=== PATIENT | male | born 1950 | race Hispanic/Latino ===

== ENCOUNTER 2017-02-23 19:58 | Inpatient (IN) | payer BC ==
[2017-02-23] MEDS ORDERED: ACETAMINOPHEN 500 MG TAB PO ONE (20:31)
[2017-02-23] MEDS ORDERED: SODIUM CHLORIDE 0.9% 1000ML 1,000 ML IVS ONE (20:31)
[2017-02-23] MEDS ORDERED: PIPERACILLIN/TAZOBACTAM 3.375 GM in SODIUM CHLORIDE 0.9% 100ML 100 ML IVPB ONE (20:45)
[2017-02-23] MEDS ORDERED: HYDROmorphone HCL INJ 2 MG/ML VIAL IV ONE (20:47)
[2017-02-23] MEDS ORDERED: PIPERACILLIN/TAZOBACTAM 3.375 GM VIAL IVPB ONE (21:12)
[2017-02-23] MEDS ORDERED: SODIUM CHLORIDE 0.9% 100ML 100 ML IVPB ONE (21:13)
--- NOTE | 2017-02-23 21:49 | CT ---
EXAM DESCRIPTION: Abdomen/Pelvis w/Contrast CLINICAL HISTORY: fever, generalized abd pain, suspect diverticulitis COMPARISON: None Available TECHNIQUE: Contiguous axial images of the abdomen and pelvis were obtained after the administration of intravenous contrast followed by reconstruction images.This exam was performed according to our departmental dose-optimization program, which includes automated exposure control, adjustment of the mA and/or kV according to patient size and/or use of iterative reconstruction technique. FINDINGS: There is diffuse mucosal thickening of the ascending and proximal transverse colon with mild stranding of the adjacent fat which could be secondary to an infectious or inflammatory process. There is a small amount of free fluid in the lower abdomen. Linear opacities within the lungs may represent scar versus subsegmental atelectasis. 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 There is atherosclerosis. The liver, spleen, pancreas and kidneys are within normal limits. There is no hydronephrosis or renal stones. The gallbladder is unremarkable by CT criteria. Adrenal glands are within normal limits. Aorta is of normal caliber and tapering. There is no bowel obstruction. The appendix is within normal limits. There is no pericecal inflammation. IMPRESSION: Diffuse mucosal thickening of the ascending colon and proximal transverse colon could be secondary to an infectious or inflammatory colitis. Other etiologies are not excluded. Recommend follow-up. Electronically signed by: Sriram Hart MD 02/23/2017 9:49 PM CDT
--- NOTE | 2017-02-23 22:25 | ED.PDOC ---
History of Present Illness - General Chief Complaint: Abdominal Pain Stated Complaint: fever and abdominal pain Time Seen by Provider: 02/23/17 20:28 Information Source: patient, RN notes reviewed, Vital Signs reviewed, family Additional Information: Pt with several days of fever and abdominal pain/cramps. No prior similar symptoms. No history of colonoscopy. No history of abdominal surgeries in the past. Pt with significant PMH of DM, Chronic ITP, HTN, HLD, BPH. - History of Present Illness Abdominal Pain Onset Location: other - lower abdomen and right sided Pain Radiation: no radiation Quality: moderate, severe, cramping, intermittent, sharpness Timing/Duration: days - x 2 to 3 Improving Factors: medication - Tylenol helped with fever yesterday. Worsening Factors: nothing Associated Symptoms: fever/chills, weakness Review of Systems - Review of Systems Constitutional: States: chills, fever, weakness EENTM: States: no symptoms reported Respiratory: States: no symptoms reported Cardiology: States: no symptoms reported Gastrointestinal/Abdominal: States: see HPI, abdominal pain Genitourinary: States: no symptoms reported Musculoskeletal: States: no symptoms reported Skin: States: no symptoms reported Neurological: States: no symptoms reported Endocrine: States: no symptoms reported Hematologic/Lymphatic: States: no symptoms reported Past Medical History (General) - Patient Medical History Hx Diabetes: Yes Hx MRSA: No Hx Other PMH: Yes - Chronic Idiopathic Thrombocytopenia - Vaccination History Hx Tetanus, Diphtheria Vaccination: No Hx Influenza Vaccination: No Hx Pneumococcal Vaccination: No Immunizations Up to Date: Yes - Social History Hx Tobacco Use: No Hx Alcohol Use: No Hx Substance Use: No Hx Substance Use Treatment: No Hx Depression: No Feels Threatened In Home Enviroment: No Feels Threatened In a Relationship: No Hx Physical Abuse: No Hx Emotional Abuse: No Hx Suspected Abuse: No Family Medical History - Family History Mother Family History: Unknown Living Status: Physical Exam - Physical Exam General Appearance: Ill Appearing, Well Developed, Well Groomed, Well Nourished Eyes, Ears, Nose, Throat Exam: normal ENT inspection, pharynx normal Neck: non-tender, full range of motion, supple, normal inspection Respiratory: no respiratory distress, no accessory muscle use Cardiovascular/Chest: normal peripheral pulses, regular rate, rhythm, no murmur Gastrointestinal/Abdominal: soft, tenderness - lower abdomen and right sided Extremity: normal range of motion, non-tender, normal inspection Neurologic: cutter and presser II-XII nml as tested, no motor/sensory deficits, alert, normal mood/affect, oriented x 3 Skin Exam: normal color Lymphatic: no adenopathy Progress - Progress Progress: 02/23/17 22:25 Diffuse abdominal pain/cramping associated with fever - DDx was Diverticulitis vs. Intestinal Abscess vs. Colitis vs. Appendicitis. Left shift of WBCs (no Leukocytosis) in the setting of chronic ITP. Pt started on Zosyn empirically and Tylenol. CT Scan with the following IMPRESSION: Diffuse mucosal thickening of the ascending colon and proximal transverse colon could be secondary to an infectious or inflammatory colitis. Other etiologies are not excluded. Recommend follow-up. Decision made to admit patient to Hospitalist service for ongoing IV Antibiotics , observation and advance diet as tolerated. Hospitalist Mari accepted admission at about 2225. - Results/Orders Results/Orders: 02/23/17 20:30 URINALYSIS Stat 02/23/17 20:43 Hold Metformin x 48Hrs [id number] 02/23/17 20:47 BLOOD CULTURE Stat Laboratory Results - last 24 hr 02/23/17 02/23/17 20:30 20:30 WBC 6.6 RBC 4.81 Hgb 13.8 L Hct 40.2 L MCV 83.6 MCH 28.6 MCHC 34.4 RDW 14.5 Plt Count 59 L MPV 12.0 H Absolute Neuts (auto) 5.50 Absolute Lymphs (auto) 0.50 L Absolute Monos (auto) 0.50 Absolute Eos (auto) 0.10 Absolute Basos (auto) 0.10 Neutrophils % 83.3 H Lymphocytes % 7.4 L Monocytes % 7.6 Eosinophils % 0.8 L Basophils % 0.9 Sodium 136 Potassium 3.6 Chloride 103 Carbon Dioxide 26 Anion Gap 10.6 L BUN 21 H Creatinine 1.14 BUN/Creatinine Ratio 18.4 Random Glucose 191 H Serum Osmolality 280.1 Calcium 8.4 Total Bilirubin 1.0 AST 27 ALT 32 Alkaline Phosphatase 66 Serum Total Protein 7.3 Albumin 3.9 Globulin 3.4 Albumin/Globulin Ratio 1.1 02/23/17 02/23/17 02/23/17 19:59 20:59 21:50 Temperature 101 F H 98.1 F 98.1 F Pulse Rate [ 95 H 85 90 Left Brachial] Respiratory 20 18 18 Rate Blood Pressure 133/76 138/78 132/70 [Left Arm] O2 Sat by Pulse 97 98 98 Oximetry Departure - Departure Clinical Impression: Colitis, acute, Chronic ITP (idiopathic thrombocytopenia) Diabetes mellitus Qualifiers: Diabetes mellitus type: type 2 Diabetes mellitus complication status: without complication Qualified Code(s): E11.9 - Type 2 diabetes mellitus without complications Time of Disposition: 22:45 Disposition: Admit Patient Condition: Fair Departure Forms: ED Discharge - Pt. Copy, Patient Portal Self Enrollment Instructions: DI for Abdominal Pain-Adult Referrals: Romeo Chandler MD [Primary Care Provider] - 1-2 Weeks Decision To Admit - Decistion To Admit Decision to Admit Reason: Medical Nature - Colitis Decision to Admit Date: 02/23/17 Decision to Admit Time: 22:25
--- NOTE | 2017-02-24 00:06 | HP ---
SUPERVISING PHYSICIAN: Roeglio Negron MD CHIEF COMPLAINT: Nausea, vomiting, diarrhea. HISTORY OF PRESENT ILLNESS: This is a 67 year-old male patient that came to the Emergency Room with several days of fever, abdominal and cramps as well as some diarrhea. This episode started on evening. He went to bed early just not feeling very well. He had some diarrhea on evening. On Saturday he got up to go to work. He had nausea and vomiting, there was no blood. He went to work but he progressively felt worse and decided to go home at noon. Over the 24 hours he continued to feel worse. He went to Urgent Care on . He was diagnosed with gastroenteritis and was told to increase his fluids and to eat a bland diet. Saturday his nausea and vomiting subsided but he continued to have small amounts of diarrhea throughout the day. During this time, he did not take his temperature but he said he had chills and he felt "warm." He did not get any better so his brought him to the Emergency Room. In the Emergency Room he was given some fluids, his initial lab showed a WBC of 6.6 but he had a left shift with neutrophils at 83.3. His hemoglobin was 13.8 and his hematocrit was 40.2. Plavix 59,000. His metabolic panel was basically within normal limits with the exception of BUN was 21 and glucose was 191. C-reactive protein was 17.2. His urinalysis was basically within normal limits. Blood cultures were done. Abdominal pelvic CT was done and per radiology interpretation showed diffuse mucosal thickening of the ascending colon and proximal transverse colon that could be secondary to an infectious or inflammatory colitis. Other etiologies are not excluded and followup recommended. He was given Zosyn in the Emergency Room and I was called for admission. PAST MEDICAL HISTORY: 1. Type 2 diabetes. 2. Hyperlipidemia. 3. Hypertension. 4. Chronic ITP. PAST SURGICAL HISTORY: None. ALLERGIES: NO KNOWN DRUG ALLERGIES. CODE STATUS: Full code. SOCIAL HISTORY: He is , he has 6 children. He denies any tobacco use, ETOH or illicit drug use. REVIEW OF SYSTEMS: GENERAL: positive for fatigue and fever. Denies weight changes. RESPIRATORY: Denies coughing, wheezing or shortness of breath. CARDIAC: Denies chest pain , palpitations or tachycardia. GASTROINTESTINAL: As per the history of present illness. GENITOURINARY: Denies hematuria, nocturia or polyuria or dysuria. NEUROLOGICAL: Denies headache, dizziness or seizures. SKIN: Denies lesions or rashes. PHYSICAL EXAMINATION: VITAL SIGNS: He is afebrile, although he came in with a temperature of 101 to the Emergency Room. His heart rate in the Emergency Room was 95, it is now 77. Blood pressure 121/72. Respiratory rate 18. Oxygen saturation is 96%. GENERAL: This is a 67 year-old male patient who is lying in his hospital bed. HEENT: Normocephalic and atraumatic. Pupils are equal and reactive. NECK: Supple without mass. CHEST: Clear to auscultation bilaterally. There is equal rise and fall of the chest with inspiration and expiration. CARDIOVASCULAR: Regular rate and rhythm. ABDOMEN: Soft, diffusely tender. It is nondistended. Bowel sounds are positive. EXTREMITIES: No cyanosis, clubbing, or edema. NEUROLOGIC: He is awake, alert, and oriented x3. SKIN: No rashes or lesions noted. LABORATORY: Per the history of present illness and this morning his electrolytes are basically within normal limits with the exception his anion gap is 8.8 Glucose 186, calcium 7.8. His platelet count this morning is 56, 000 and he continues to have neutrophils that are elevated at 78.1. Preliminary blood cultures are negative. Abdominal x-ray this morning per radiology interpretation shows no acute findings. All other labs and films have been reviewed via the EMR. ASSESSMENT: 1. Diffuse abdominal pain, most likely inflammatory colitis, cannot rule out early diverticulitis abscess or other infectious process. 2. Chronic ITP, presently not being treated. 3. Diabetes mellitus type 2. 4. Hypertension. 5. Hyperlipidemia. PLAN: We will admit the patient to the hospital. We will put him on bowel rest and give him IV fluids. We will monitor his condition continually to advance his diet very slowly. He is on Flagyl and Levaquin. I have also started sliding scale insulin. He will have SCDs for ulcer prophylaxis. I will hold out on the Lovenox for right now but he will get Protonix for ulcer prophylaxis. His last colonoscopy was about 3 years ago in [place]. He does not remember the physician but after discharge he will need to followup with his GI doctor. As for his ITP, according to Dr. Pineda's note, they would not treat his ITP unless his platelet count dropped below 30,000 and at this point it is greater than 50,000 so we will monitor that closely. I will also do some stool studies. We will encourage good pulmonary hygiene. I will monitor his CRP in a few days and do routine lab in the morning and monitor the patient closely and followup as needed. Dr. Ngeron is the collaborating physician and available for consultation. #[id number] [facility]
[2017-02-24] MEDS ORDERED: ACETAMINOPHEN SUPPOSITORY 650 MG PR PRN (00:27)
[2017-02-24] MEDS ORDERED: HYDROmorphone HCL INJ 2 MG/ML VIAL IV PRN (00:37)
[2017-02-24] MEDS ORDERED: GLUCAGON INJ 1 MG VIAL SUBCU PRN (00:38)
[2017-02-24] MEDS ORDERED: DEXTROSE 50% 25 GM/50 ML SYG IV PRN (00:38)
[2017-02-24] MEDS ORDERED: PANTOPRAZOLE SODIUM IV 40 MG VIAL IV SCH (01:00)
[2017-02-24] MEDS ORDERED: KCL 20MEQ/D5 1/2NS 1,000 ML IVS ONE (01:07)
[2017-02-24] MEDS ORDERED: levoFLOXacin 500MG IV 100 ML IVPB ONE ×2 (01:08→20:22)
[2017-02-24] MEDS ORDERED: metroNIDAZOLE IV PREMIX 500MG 100 ML IVPB ONE ×4 (01:08→20:22)
[2017-02-24] MEDS: SODIUM CHLORIDE 0.9% (FLUSH) 10 ML SYG IV PRN ×4 (01:27→21:25)
[2017-02-24] MEDS: metroNIDAZOLE IV PREMIX 500MG 500 MG in PREMIX BAG 1 BAG IVPB SCH ×3 (01:28→16:50)
[2017-02-24] MEDS ORDERED: KCL 20MEQ/D5W 0 ML IVS ONE (01:41)
[2017-02-24] MEDS: IV SET AND CAP CHANGE INJ INJ SCH (01:50)
[2017-02-24] MEDS: levoFLOXacin 500MG IV 500 MG in PREMIX BAG 1 BAG IVPB SCH (02:36)
[2017-02-24] MEDS: KCL 20MEQ/D5NS 1,000 ML IVS PRN ×2 (02:40→13:14)
[2017-02-24] MEDS: INSULIN LISPRO 100 UNITS/ML PEN SUBCU SCH ×4 (06:10→21:25)
--- NOTE | 2017-02-24 06:57 | RAD ---
Procedure: XR ABDOMEN 2 VIEWS SUPINE ERECT Exam Date: 02/24/2017 Ordering Provider: JOHNNA MORRIS Clinical Indication: abd pain Comparison: 02/23/2017 CT abdomen pelvis Findings: There is excreted contrast in the urinary bladder from prior CT exam. There is no small or large bowel distention. There is no pneumoperitoneum. There are no suspicious calcifications. There is no acute skeletal abnormality. Impression: 1. No acute findings. Electronically signed by: Jerad Childs MD 02/24/2017 6:57 AM CDT
--- NOTE | 2017-02-24 10:28 | PCM.CORE ---
Physician DVT/VTE - Contraindications Medication Contraindication: Medical Contraindication - pt has itp - Nurse DVT Assessment & Total Each Risk Factor Represents 2 Points: Age 60-74 Each Risk Factor Represents 1 Point: Medical PT at Bed Rest Each Risk Factor is 1 Point: Obesity (BMI >25) DVT Assessment Score: 4 - 3-4 High Risk Treatments: Early Ambulation *, Sequential Compression Device
[2017-02-24] MEDS ORDERED: [UNRECOGNIZED DRUG - OTHER] IVS ONE (20:25)
[2017-02-24] MEDS ORDERED: KCL IVS ONE (20:25)
[2017-02-24] MEDS: PANTOPRAZOLE SODIUM IV 40 MG VIAL IV SCH (21:25)
[2017-02-25] MEDS: metroNIDAZOLE IV PREMIX 500MG 500 MG in PREMIX BAG 1 BAG IVPB SCH ×3 (00:56→18:33)
[2017-02-25] MEDS: SODIUM CHLORIDE 0.9% (FLUSH) 10 ML SYG IV PRN (00:56)
[2017-02-25] MEDS: levoFLOXacin 500MG IV 500 MG in PREMIX BAG 1 BAG IVPB SCH (02:00)
[2017-02-25] MEDS: INSULIN LISPRO 100 UNITS/ML PEN SUBCU SCH ×4 (07:25→21:11)
[2017-02-25] MEDS ORDERED: metroNIDAZOLE IV PREMIX 500MG 100 ML IVPB ONE ×3 (07:26→20:21)
[2017-02-25] MEDS: SODIUM CHLORIDE 0.9% (FLUSH) 10 ML SYG IV SCH ×2 (09:18→21:10)
[2017-02-25] MEDS ORDERED: levoFLOXacin 500MG IV 100 ML IVPB ONE (20:21)
[2017-02-25] MEDS: PANTOPRAZOLE SODIUM IV 40 MG VIAL IV SCH (21:11)
[2017-02-26] MEDS: metroNIDAZOLE IV PREMIX 500MG 500 MG in PREMIX BAG 1 BAG IVPB SCH ×3 (00:58→18:20)
[2017-02-26] MEDS: SODIUM CHLORIDE 0.9% (FLUSH) 10 ML SYG IV PRN (00:58)
[2017-02-26] MEDS: levoFLOXacin 500MG IV 500 MG in PREMIX BAG 1 BAG IVPB SCH (02:00)
--- NOTE | 2017-02-26 07:29 | RAD ---
EXAM DESCRIPTION: Abdomen Flat Upright CLINICAL HISTORY: 67 years Male, diverticulosis with abdominal pain COMPARISON: February 24, 2017 FINDINGS: The lung bases are unremarkable. There is no free subdiaphragmatic gas or intra-abdominal air-fluid level. The bowel gas pattern is nonobstructive. No suspicious intra-abdominal calcification or mass. Medical tubing projecting over the midline pelvis may represent a catheter or drain. IMPRESSION: No pneumoperitoneum, obstruction or other acute intra-abdominal abnormality. Electronically signed by: Regino Dent MD 02/26/2017 7:29 AM CDT Workstation: [facility] FACILITYStunableMON[facility]
[2017-02-26] MEDS ORDERED: metroNIDAZOLE IV PREMIX 500MG 100 ML IVPB ONE ×3 (08:04→19:45)
--- NOTE | 2017-02-26 08:49 | PN ---
SUPERVISING PHYSICIAN: Romeo Chandler MD DATE: 02/25/17 SUBJECTIVE: The patient is resting in bed. He says his pain is much improved today. He continues to have some mild tenderness on the right and left lower quadrants, but reports this is much less than previous days. He has had no nausea. He continues to have some mild diarrhea. He remains for evaluation. OBJECTIVE: VITAL SIGNS: T-max 97.3. Pulse 82. Blood pressure 158/77. Respirations 18. Saturation 95% on room air. I&Os show 3 bowel movements today with a near balance of 90 with 2520 in and 2430 out. Weight 76.2 kg. CHEST: Lungs clear to auscultation bilaterally. HEART: Regular rate and rhythm. ABDOMEN: Soft with some mild tenderness in the right lower quadrants. No rebound tenderness. EXTREMITIES: No cyanosis, clubbing or edema. NEUROLOGIC: Alert and oriented times three. LABORATORY: White count 4.3, hemoglobin 13.6, hematocrit 39.3, platelet count 69,000. Differential now is normalized. Chemistries show normal electrolytes with 3.6 potassium, BUN 8, creatinine 0.85. Glucoses have been 146 to 207. Liver functions all within normal limits. He has had 3 occult bloods with 2 positives, 1 negative. O&P pending. C. difficile times 3 specimens have all been negative for antigen and toxin A and B. MICROBIOLOGY: Urine culture showed no growth 24 hours. Stool cultures still pending. Blood cultures showed no growth at 24 hours. ASSESSMENT: 1. Lower abdominal pain, felt to be secondary to inflammatory colitis with continuation of rule out diverticulitis, ongoing infectious process with the patient remaining on Flagyl and Levaquin with the patient showing clinical improvement. He continues to have some abdominal pain, but improved since admission. 2. Chronic idiopathic thrombocytopenic purpura, presently not being treated. 3. Diabetes mellitus, type 2. 4. Hypertension. 5. Hyperlipidemia. PLAN: We will continue with bowel rest today with clear liquid diet. He will continue with antibiotics to include Levaquin and Flagyl. We will continue on Lovenox with his platelet count being 69,000. He did have 2 positive occult bloods and will need a colonoscopy in the outpatient setting once discharged. We will reassess in the morning. If he is clinical improvement and no longer having any abdominal pain, we will advance his diet tolerated and if able, will discharge home tomorrow possibly. Until he has no abdominal pain, we will continue the clear liquid diet. Until discharge, we will continue to monitor the patient closely and treat appropriately. [facility][id number] [facility]
[2017-02-26] MEDS: INSULIN LISPRO 100 UNITS/ML PEN SUBCU SCH ×4 (08:51→21:23)
[2017-02-26] MEDS: SODIUM CHLORIDE 0.9% (FLUSH) 10 ML SYG IV SCH ×2 (09:00→20:34)
[2017-02-26 10:04] VITALS: O2SAT 98
[2017-02-26] MEDS: PANTOPRAZOLE SODIUM TAB 40 MG PO SCH (10:37)
[2017-02-26] MEDS: metFORMIN HCL 500 MG TAB PO SCH ×2 (10:37→18:20)
[2017-02-26] MEDS: BIFIDOBACTERIUM INFANTIS 4 MG CAP PO SCH (10:37)
[2017-02-26] MEDS: amLODIPine BESYLATE 5 MG TAB PO SCH (10:37)
[2017-02-26] MEDS: DUTASTERIDE 0.5 MG CAP PO SCH (10:37)
[2017-02-26] MEDS: CARVEDILOL 12.5 MG TAB PO SCH ×2 (10:37→20:30)
[2017-02-26] MEDS: LISINOPRIL 10 MG TAB PO SCH (10:49)
[2017-02-26] MEDS ORDERED: ATORVASTATIN 10 MG TAB ONE (19:44)
[2017-02-26] MEDS ORDERED: TAMSULOSIN 0.4 MG CAP ONE (19:44)
[2017-02-26] MEDS ORDERED: levoFLOXacin 500MG IV 100 ML IVPB ONE (19:45)
--- NOTE | 2017-02-26 20:50 | PN ---
DATE: 02/26/17 SUPERVISING PHYSICIAN: Romeo Chandler M.D. SUBJECTIVE: The patient is doing well today. We are starting to advance his diet. He tolerated full liquids last night and this morning. He remains afebrile. Says his pain is gone. OBJECTIVE: VITAL SIGNS: T max 97.6, blood pressure 123/71, heart rate 66, respirations 18, satting 99% on room air. I's and O's. Continues to have several bowel movements. Overall I's and O's are balanced fairly well. Weight 76.2. CHEST: Clear to auscultation bilaterally. HEART: regular rate and rhythm. ABDOMEN: Soft. There is no tenderness noted today. No rebound tenderness. Positive bowel sounds. EXTREMITIES: No clubbing, cyanosis or edema. NEUROLOGIC: He is alert and oriented times three. LABORATORY: White count has normalized now to 4.9, hemoglobin 14.1, hematocrit 40.5, platelet count has improved to 82,000. Differential shows to be within normal limits. Chemistries show potassium 3.5 with BUN 9, creatinine 9.7, glucoses have been 147 to 205. C reactive protein has decreased from 17.2 to 3.6. MICROBIOLOGY: He has had a total of 3 Clostridium Difficile toxin A and B that have all been negative. He has had 3 occult bloods, 2 have been positive, 1 negative. Urine culture showed no growth at 48 hours. Stool culture preliminary shows decreased normal va. Blood cultures remain negative at 48 hours. RADIOLOGY: Abdominal x-ray this morning per radiology interpretation showed no pneumoperitoneum, obstruction or other acute intraabdominal abnormalities. ASSESSMENT: 1. Lower abdominal pain felt to be secondary to inflammatory colitis with the possibility of some diverticulitis with cultures showing to be negative for any enteric pathogens at this point. All Clostridium Difficile toxin antigen tests have been negative. He remains on Flagyl and Levaquin, and continues to show good clinical improvement. 2. Chronic idiopathic thrombocytopenic purpura presently not being treated but followed in the past by Dr. Pineda. 3. Diabetes mellitus type 2. 4. Hypertension. 5. Hyperlipidemia. PLAN: Will advance his diet today to a regular 1800 calorie ADA diet. He will continue with Levaquin and Flagyl. Given that he has had 2 positive occult bloods and no recent history of having a colonoscopy, certainly will warrant having a workup in the near future which can be done in the outpatient setting once discharged by his primary care provider, Dr. Chandler. Will continue to monitor the patient closely. Anticipate discharge in the morning if he tolerates diet and no return of his pain. Until then, will continue to monitor and treat appropriately. #[id number] [facility]
[2017-02-26] MEDS ORDERED: TAMSULOSIN 0.4 MG CAP PO SCH (21:00)
[2017-02-26] MEDS ORDERED: ATORVASTATIN 10 MG TAB PO SCH (21:00)
[2017-02-27] MEDS: IV SET AND CAP CHANGE INJ INJ SCH
[2017-02-27] MEDS: SODIUM CHLORIDE 0.9% (FLUSH) 10 ML SYG IV PRN (01:11)
[2017-02-27] MEDS: metroNIDAZOLE IV PREMIX 500MG 500 MG in PREMIX BAG 1 BAG IVPB SCH ×2 (01:11→08:33)
[2017-02-27] MEDS: levoFLOXacin 500MG IV 500 MG in PREMIX BAG 1 BAG IVPB SCH (02:15)
[2017-02-27 06:08] VITALS: TEMP 97.7
[2017-02-27] MEDS: PANTOPRAZOLE SODIUM TAB 40 MG PO SCH (06:36)
[2017-02-27] MEDS ORDERED: metroNIDAZOLE IV PREMIX 500MG 100 ML IVPB ONE (07:20)
[2017-02-27] MEDS: INSULIN LISPRO 100 UNITS/ML PEN SUBCU SCH (07:25)
[2017-02-27 07:28] VITALS: BP 138/73
[2017-02-27] MEDS: metFORMIN HCL 500 MG TAB PO SCH (07:47)
[2017-02-27] MEDS: amLODIPine BESYLATE 5 MG TAB PO SCH (08:34)
[2017-02-27] MEDS: BIFIDOBACTERIUM INFANTIS 4 MG CAP PO SCH (08:36)
[2017-02-27] MEDS: DUTASTERIDE 0.5 MG CAP PO SCH (08:37)
[2017-02-27] MEDS: LISINOPRIL 10 MG TAB PO SCH (08:37)
[2017-02-27] MEDS: CARVEDILOL 12.5 MG TAB PO SCH (08:39)
[2017-02-27] MEDS: SODIUM CHLORIDE 0.9% (FLUSH) 10 ML SYG IV SCH (08:42)
--- NOTE | 2017-03-07 13:29 | DS ---
SUPERVISING PHYSICIAN: Rogelio Negron MD DISCHARGE DIAGNOSIS: 1. Lower abdominal pain on admission, felt to be secondary to inflammatory colitis with possibly some diverticulitis with cultures on stool being negative for any enteric pathogens and all Clostridium difficile antigen tests being negative. He was on Flagyl and Levaquin throughout the hospitalization and showed good clinical improvement. 2. Chronic idiopathic thrombocytopenic purpura, presently not being treated, but followed in the past by Dr. Pineda. 3. Diabetes mellitus, type 2. 4. Hypertension. 5. Hyperlipidemia. HISTORY OF PRESENT ILLNESS: Mr. Wayne is a 67-year-old male patient that came to the Emergency Room after several days of fever, abdominal cramps as well as some diarrhea. The episode started on evening prior to admission. He went to bed early just not feeling very well. He had some diarrhea on evening. On Saturday, he got up to go to work. He starting having nausea and vomiting, but there was no noted blood. He went to work, but he progressively felt worse and decided to go home at noon. Over the next 24 hours, he continued to feel worse. He went to Urgent Care on . He was diagnosed with gastroenteritis and was told to increase his fluids and to eat a bland diet. Saturday, his nausea and vomiting subsided, but he continued to have small amounts of diarrhea throughout the day. During this time, he did not take his temperature, but he said he had chills and he felt "warm." He did not get any better, so his brought him to the Emergency Room. In the Emergency Room he was given fluids. His initial lab showed a white count of 6.6, but he had a left shift with neutrophils at 83.3. His hemoglobin was 13.8 and his hematocrit was 40.2. Platelets were 59,000. His metabolic panel was basically within normal limits with the exception of BUN was 21 and glucose was 191. C-reactive protein was 17.2. His urinalysis was basically within normal limits. Blood cultures were completed. Abdominopelvic CT was done and per radiologic interpretation showed diffuse mucosal thickening of the ascending colon and proximal transverse colon that could be secondary to an infectious or inflammatory colitis. Other etiologies are not excluded and followup recommended. He was given Zosyn in the Emergency Room and admitted to the Medical/Surgical Floor. LABORATORY: CBC on admission showed white count normal at 6.6. This remained within normal limits and at discharge was 4.9. Hemoglobin and hematocrit remained stable and at discharge were 14.1 and 40.5. Platelet count initially was 59,000 on admission, but did show improvement prior to discharge and was 82, 000. He did show a left shift initially, but this resolved prior to discharge. His chemistries initially on admission showed normal electrolytes with BUN 21 , creatinine 1.4, liver functions within normal limits. C-reactive protein was 17.2, calcium 8.4. Through admission and treatment with antibiotics and fluids , electrolytes remained within normal limits and at discharge were within normal limits with potassium 3.6, BUN improved to 15, creatinine 1.05, calcium 8.6. Glucoses were fairly stable ranging from 147 to 243. MICROBIOLOGY: He had three C. difficile A&Bs that were negative. He had stool leukocytes that were positive. Urine culture showed no growth at 48 hours. Stool cultures showed reduced normal va, but no enteric pathogens were isolated. He had one set of blood cultures that remained negative after 5 days. Occult blood times 3 showed 1 negative initially with 2 being positive. O&P pending at discharge. RADIOLOGY: Abdominopelvic CT on admission through the Emergency Department showed diffuse mucosal thickening of the descending colon and proximal transverse colon which could be secondary to infectious or inflammatory colitis per radiologic interpretation. He had a followup abdominal x-ray on 02/26/17, the day before discharge, and per radiologic interpretation showed no pneumoperitoneum, other obstruction or other acute intraabdominal abnormalities. HOSPITAL COURSE: Mr. Wayne was admitted as noted in history of present illness for concerns for colitis and C. difficile. He did have 3 C. difficiles that were negative. He was initiated on antibiotic therapy to include Flagyl and Levaquin as well as sliding scale protocol insulin. He did remain stable and showed good improvement. On day 2, he was able to start a diet and was advanced prior to discharge. On date of discharge, he was no longer having any abdominal pains, was tolerating an 1800 calorie ADA diet. It was felt tat that point that he was clinically improved well enough to be discharged. PLAN: Mr. Wayne was discharged on 02/27/17 with instructions to followup with Dr. Chandler on 03/06/17 at 1345. He was told he would need a colonoscopy at some point which could be arranged through ' office. He was told to his resume his home medications as directed and to take new prescriptions as directed. He was to return to the hospital if his symptoms failed to improve or he had any concerning symptoms. At discharge, new prescriptions included: 1. Align 4 mg daily. 2. Levaquin 500 mg, #3. 3. Flagyl 500 mg 3 times daily, #9. All other medications were to be resumed as previous to hospitalization. DIET: 1800 calorie ADA diet as tolerated. ACTIVITY: Increase as tolerated. CONDITION AT DISCHARGE: Stable and improved. #[id number] [facility]
== END 2017-02-27 10:36 | disposition home or self-care (01) | DRG 392 ==
LOC: ER 19:58 → MS 02-24 00:04 → OBSVTOIN 02-24 00:04
PROVIDERS: ADMIT Nurse Practitioner Acute Care; ATTEND Nurse Practitioner Family
PROC: BW21YZZ Computerized Tomography (CT Scan) of Abdomen and Pelvis using Other Contrast (ICD-10-PCS; principal; 2017-02-23)
DX: K57.32 Diverticulitis of large intestine without perforation or abscess without bleeding (principal); D69.3 Immune thrombocytopenic purpura; K52.89 Other specified noninfective gastroenteritis and colitis; E11.9 Type 2 diabetes mellitus without complications; I10 Essential (primary) hypertension; E78.5 Hyperlipidemia, unspecified; R19.5 Other fecal abnormalities; N40.0 Benign prostatic hyperplasia without lower urinary tract symptoms

== ENCOUNTER → 2017-03-06 | Outpatient (CLI) | payer BC | END | disposition home or self-care (01) | LOC: GMAJ 11:35 | PROVIDERS: ATTEND Family Medicine | DX: Z12.5 Encounter for screening for malignant neoplasm of prostate (principal); I10 Essential (primary) hypertension; E11.9 Type 2 diabetes mellitus without complications; E27.2 Addisonian crisis ==

== ENCOUNTER 2017-04-19 05:50 | Day surgery (SDC) | payer BC ==
[2017-04-19] MEDS ORDERED: LACTATED RINGERS 1,000 ML ONE (06:11)
[2017-04-19] MEDS ORDERED: PROPOFOL 200 MG/20 ML VIAL IV ONE (07:13)
[2017-04-19] MEDS ORDERED: MIDAZOLAM INJ 5 MG/5 ML VIAL IV ONE (07:13)
[2017-04-19] MEDS ORDERED: LIDOCAINE 1% 10 ML VIAL INJ ONE (07:13)
[2017-04-19] MEDS ORDERED: fentaNYL CITRATE INJ 50 MCG/ML AMP IV ONE (07:14)
--- NOTE | 2017-04-19 08:05 | OP ---
DATE OF PROCEDURE: 04/19/17 PREOPERATIVE DIAGNOSIS: 1. Colon cancer screen. POSTOPERATIVE DIAGNOSIS: 1. Normal colonoscopy to the cecum. PROCEDURE: 1. Colonoscopy. SURGEON: Romeo Chandler MD. ANESTHESIA: MAC by Fer Gonzalez CRNA. ESTIMATED BLOOD LOSS: None. COMPLICATIONS: None apparent. TECHNIQUE: After informed consent was obtained from the patient, the patient was taken to the Endoscopy Suite and put in the left lateral decubitus position. After adequate IV sedation was obtained, a digital rectal exam was performed which revealed decreased sphincter tone, external hemorrhoid tags, no intraluminal masses, and a smooth, 1+, anodular prostate. The colonoscope was then passed with good visualization all the way through the colon. The bowel prep was excellent. The cecum was identified by the usual landmarks. The scope was then withdrawn slowly over the next 8 minutes and a good look at the entire colonic mucosa was obtained. There were no polyps, masses diverticula, or other mucosal anomalies found. The scope was removed. The patient tolerated the procedure well. The patient was transported to the outpatient area in good condition. RECOMMENDATION: 1. I have suggested a high fiber diet. 2. He will continue his usual medicines. 3. Followup as needed. #[id number] [facility]
[2017-04-19 10:48] VITALS: BP 127/71; TEMP 97.6; O2SAT 100
== END 2017-04-19 08:34 | disposition home or self-care (01) ==
LOC: AMB 05:50
PROVIDERS: ATTEND Family Medicine
DX: Z12.11 Encounter for screening for malignant neoplasm of colon (principal); E11.9 Type 2 diabetes mellitus without complications; E78.00 Pure hypercholesterolemia, unspecified; I10 Essential (primary) hypertension; N40.0 Benign prostatic hyperplasia without lower urinary tract symptoms; E78.2 Mixed hyperlipidemia; R31.29 Other microscopic hematuria; Z79.84 Long term (current) use of oral hypoglycemic drugs; Z79.4 Long term (current) use of insulin; Z79.899 Other long term (current) drug therapy
CPT/HCPCS: 00810; 36416; 45378; 82948; J2250; J3010; J3490; J7120

== ENCOUNTER → 2018-05-01 | Outpatient (CLI) | payer BC | LOC: GMAJ 10:59 | PROVIDERS: ATTEND Family Medicine | DX: I10 Essential (primary) hypertension (principal); Z12.5 Encounter for screening for malignant neoplasm of prostate ==

== ENCOUNTER → 2019-07-02 | Outpatient (CLI) | payer BC | LOC: GMAJ 10:24 | PROVIDERS: ATTEND Family Medicine | DX: Z12.5 Encounter for screening for malignant neoplasm of prostate (principal); I10 Essential (primary) hypertension; E11.9 Type 2 diabetes mellitus without complications; E78.2 Mixed hyperlipidemia ==

== ENCOUNTER → 2020-07-12 | Outpatient (CLI) | payer BC, OTHER | LOC: GMAJ 14:25 | PROVIDERS: ATTEND Family Medicine | DX: Z12.5 Encounter for screening for malignant neoplasm of prostate (principal) ==